=== PATIENT | female | born 1955 | race Asian ===

== ENCOUNTER → 2020-04-16 09:45 | Outpatient (CLI) | payer MEDICARE, SELFPAY ==
[2020-04-17 16:55] LABS: COVID19 Sendout Not Detected (Not Detected)
== END ==
PROVIDERS: Visit Provider Physician Assistant
DX: Z11.59 Encounter for screening for other viral diseases (principal)
CPT/HCPCS: 87635

== ENCOUNTER → 2025-01-22 14:43 | Outpatient (CLI) | payer MEDICARE, OTHER, SELFPAY ==
--- NOTE | 2025-01-22 14:47 | DI.MG.S_ITS ---
MM screening mammo BI: 01/22/2025. BI-RADS: 0 CLINICAL: 69-year old female for bilateral screening mammogram. Tyrer-Cuzick lifetime risk of 2.2%. No personal or first-degree family history of breast cancer. History of ovarian cancer in one first-degree relative. PRIOR EXAMS 2022 [facility]. MAMMOGRAPHY TECHNIQUE: 2D and 3D (tomosynthesis) digital mammographic views obtained, with additional images as needed for full coverage. Current study was also evaluated with a Computer Aided Detection (CAD) system. DENSITY A. The breasts are almost entirely fatty. MAMMOGRAPHY FINDINGS Right: CC only, Outer, Posterior depth: Asymmetry needing additional imaging evaluation. Left: No suspicious mass, asymmetry, microcalcification, or other abnormality seen. No significant change from comparison. IMPRESSION: Right (Asymmetry): CC only, Outer, Posterior depth * Incomplete - asymmetry needing additional imaging evaluation. Left * No evidence of malignancy. RECOMMENDATIONS Right: CC only, Outer, Posterior depth * Further evaluation with diagnostic mammography and diagnostic ultrasound. Ultrasound to be performed only if needed. OVERALL ASSESSMENT CATEGORY BI-RADS-0: Incomplete - Need Additional Imaging Evaluation. ELECTRONICALLY SIGNED: Lindsay Rolle M.D. on 01/25/2025 at 07:09:06 PM PT Interpreting Station ID: [id number]
--- NOTE | 2025-01-22 14:48 | DI.RAD.S_ITS ---
PROCEDURE: XR DEXA AXIAL SKELETON INDICATIONS: SCREENING COMPARISON: None. FINDINGS: Lumbar Spine (L1, L2, L4): Bone mineral density 1.022 g/cm2, T score -0.1, normal. Left Femoral Neck: Bone mineral density 0.536 g/cm2, T score -2.8, osteoporosis. Left Hip: Bone mineral density 0.821 g/cm2, T score -1.0, normal. Fracture Risk Calculation (when applicable): 10-year fracture risk of a major osteoporotic fracture 17 percent and of a hip fracture 5.1 percent. FRAX score not valid because one or more T-scores are below-2.5. (T score greater or equal to -1.0 to: NORMAL) (T score from -1.1 to -2.4: OSTEOPENIA) (T score less than or equal to -2.5: OSTEOPOROSIS) IMPRESSION: Osteoporosis. The patient is at a high risk of fracture. Follow-up guidelines as follows: Osteoporosis: Consider a repeat DEXA and Vertebral Fracture Assessment (VFA) exam in 2 years or sooner if medically necessary, to reassess this patient's status. Osteopenia: Consider a repeat DEXA in 2-3 years to reassess this patient's status, or if there is a new clinical indication. Normal: Consider a repeat DEXA in 5 years or sooner, or if there is a new clinical indication. All treatment decisions require clinical judgment and consideration of individual patient factors, including patient preferences, comorbidities, previous drug use, risk factors not captured in the FRAX model (e.g., frailty, falls, vitamin D deficiency, increased bone turnover, interval significant decline in bone density ) and possible under- or over-estimation of fracture risk by FRAX. In addition, the [employer] Guide recommends that FDA-approved medical therapies be considered in postmenopausal women and men age >= 50 years with a: * Hip or vertebral (clinical or morphometric) fracture * T-score of <=-2.5 at the spine or hip * Ten-year fracture probability by FRAX of >= 3% for hip fracture or >=20% for major osteoporotic fracture. Dictated by: Lindsay Rolle M.D. on 01/23/2025 at 1:12 Approved by: Lindsay Rolle M.D. on 01/23/2025 at 1:14
== END ==
PROVIDERS: PCP Family Medicine; Referring Provider Family Medicine; Visit Provider Family Medicine
DX: Z12.31 Encounter for screening mammogram for malignant neoplasm of breast (principal); R92.313 Mammographic fatty tissue density, bilateral breasts; Z80.41 Family history of malignant neoplasm of ovary; M81.0 Age-related osteoporosis without current pathological fracture; Z78.0 Asymptomatic menopausal state
CPT/HCPCS: 77063; 77067; 77080

== ENCOUNTER → 2025-02-13 09:22 | Outpatient (CLI) | payer MEDICARE, OTHER, SELFPAY ==
--- NOTE | 2025-02-13 09:25 | DI.MG.S_ITS ---
MM diagnostic mammo unilat RT, US breast RT limited: 02/13/2025 BI-RADS: 1 CLINICAL: 69-year old female for right diagnostic mammogram and right diagnostic breast ultrasound that is a recall from screening on 01/22/2025. Tyrer-Cuzick lifetime risk of 2.2%. No personal or first-degree family history of breast cancer. History of ovarian cancer in one first-degree relative. PRIOR EXAMS 01/22/2025, 10/20/2023, 12/09/2021. MAMMOGRAPHY TECHNIQUE: 2D and 3D (tomosynthesis) digital mammographic views obtained, with additional images as needed for full coverage. Current study was also evaluated with a Computer Aided Detection (CAD) system. ULTRASOUND TECHNIQUE Real-time santiago scale imaging of the area of clinical interest was performed with image documentation. TARGETED Right Breast Ultrasound: Real-time ultrasound exam was performed focused to area of clinical and/or imaging concern. DENSITY Right: A. The breasts are almost entirely fatty. MAMMOGRAPHY FINDINGS Right (finding-1): CC only, Outer: The asymmetry seen on recent screening mammogram is less conspicuous with rolled views and is consistent with superimposition of normal breast tissue. ULTRASOUND FINDINGS Right (finding-1): CC only, Outer: No suspicious sonographic finding present. The area from 8-11 o'clock, 9 cm form the nipple was scanned, and no sonographic correlate was found for the asymmetry seen on screening mammogram. IMPRESSION: Right * No evidence of malignancy. RECOMMENDATIONS Bilateral * Annual screening mammography. COMMENTS: Findings and recommendations were conveyed to the patient during today's evaluation. OVERALL ASSESSMENT CATEGORY BI-RADS-1: Negative. The [employer] recommends annual screening mammography beginning at age 40 for women with average risk of breast cancer. ELECTRONICALLY SIGNED: Jeri Mckenzie M.D. on 02/13/2025 at 11:20:13 AM PT Interpreting Station ID: [id number]
--- NOTE | 2025-02-13 09:32 | DI.US.S_ITS ---
PROCEDURE: US BREAST RT LIMITED COMPARISON: None. INDICATIONS: ABNORMAL MAMMO FINDINGS: IMPRESSION: Dictated by: Jeri Mckenzie M.D. on 02/13/2025 at 10:31 Approved by: Jeri Mckenzie M.D. on 02/13/2025 at 10:33
--- NOTE | 2025-02-13 10:16 | DI.US.S_ITS ---
Patient Name: DEBO MCCOY date: 1955 Sex: F Attending Physician: Johnny Indications: Date: 02/13/2025 11:20 At the request of: ANTONIO OCHOA Procedure: US breast RT limited MM diagnostic mammo unilat RT, US breast RT limited: 02/13/2025 BI-RADS: 1 CLINICAL: 69-year old female for right diagnostic mammogram and right diagnostic breast ultrasound that is a recall from screening on 01/22/2025. Tyrer-Cuzick lifetime risk of 2.2%. No personal or firstdegree family history of breast cancer. History of ovarian cancer in one first-degree relative. PRIOR EXAMS 01/22/2025, 10/20/2023, 12/09/2021. MAMMOGRAPHY TECHNIQUE: 2D and 3D (tomosynthesis) digital mammographic views obtained, with additional images as needed for full coverage. Current study was also evaluated with a Computer Aided Detection (CAD) system. ULTRASOUND TECHNIQUE Real-time santiago scale imaging of the area of clinical interest was performed with image documentation. TARGETED Right Breast Ultrasound: Real-time ultrasound exam was performed focused to area of clinical and/or imaging concern. DENSITY Right: A. The breasts are almost entirely fatty. MAMMOGRAPHY FINDINGS Right (finding-1): CC only, Outer: The asymmetry seen on recent screening mammogram is less conspicuous with rolled views and is consistent with superimposition of normal breast tissue. ULTRASOUND FINDINGS Continued Report - Page 2 of 2 Patient Name: DEBO MCCOY date: 1955 Sex: F Attending Physician: Johnny Indications: Date: 02/13/2025 11:20 At the request of: ANTONIO OCHOA Procedure: US breast RT limited Right (finding-1): CC only, Outer: No suspicious sonographic finding present. The area from 8-11 o'clock, 9 cm form the nipple was scanned, and no sonographic correlate was found for the asymmetry seen on screening mammogram. IMPRESSION: Right * No evidence of malignancy. RECOMMENDATIONS Bilateral * Annual screening mammography. COMMENTS: Findings and recommendations were conveyed to the patient during today's evaluation. OVERALL ASSESSMENT CATEGORY BI-RADS-1: Negative. The [employer] recommends annual screening mammography beginning at age 40 for women with average risk of breast cancer. ELECTRONICALLY SIGNED: Jeri Mckenzie M.D. on 02/13/2025 at 11:20:13 AM PT Interpreting Station ID: [id number]
== END ==
PROVIDERS: PCP Family Medicine; Referring Provider Registered Nurse; Visit Provider Registered Nurse
DX: R92.8 Other abnormal and inconclusive findings on diagnostic imaging of breast (principal); Z80.41 Family history of malignant neoplasm of ovary; R92.311 Mammographic fatty tissue density, right breast
CPT/HCPCS: 76642; 77065; G0279

== ENCOUNTER → 2025-03-04 10:23 | Outpatient (CLI) | payer MEDICARE, OTHER, SELFPAY ==
--- NOTE | 2025-03-04 10:25 | DI.RAD.S_ITS ---
PROCEDURE: XR CHEST 2V INDICATIONS: XIPHOID PAIN TECHNIQUE: 2 views of the chest were acquired. COMPARISON: None. FINDINGS: Surgical changes and devices: None. Lungs and pleura: Lungs are clear. No pleural effusions or pneumothorax. Mediastinum: Mediastinal contours are normal. Heart size is normal. Bones and chest wall: No suspicious bony abnormalities. Soft tissues appear unremarkable. No abnormalities identified in the anterior chest as imaged on the lateral projection. IMPRESSION: No acute cardiopulmonary abnormalities or focal consolidation. Dictated by: Neal Calles M.D. on 03/04/2025 at 15:43 Approved by: Neal Calles M.D. on 03/04/2025 at 15:43
== END ==
PROVIDERS: PCP Registered Nurse; Referring Provider Registered Nurse; Visit Provider Registered Nurse
DX: R07.89 Other chest pain (principal)
CPT/HCPCS: 71046

== ENCOUNTER → 2025-05-22 14:40 | Outpatient (CLI) | payer MEDICARE, OTHER, SELFPAY ==
--- NOTE | 2025-05-22 14:44 | DI.RAD.S_ITS ---
PROCEDURE: XR MANDIBLE MIN 4V INDICATIONS: JAW PAIN TECHNIQUE: 4 views of the mandible were acquired. COMPARISON: None. FINDINGS: Bones: No fractures or dislocations. No suspicious bony lesions. Soft tissues: Visualized sinuses appear clear. No suspicious soft tissue densities. IMPRESSION: No acute bony abnormality. Open-mouth views were not included. Dictated by: Jose Reis M.D. on 05/26/2025 at 20:35 Approved by: Jose Reis M.D. on 05/26/2025 at 20:36
== END ==
PROVIDERS: PCP Registered Nurse; Referring Provider Registered Nurse; Visit Provider Registered Nurse
DX: R68.84 Jaw pain (principal); M81.0 Age-related osteoporosis without current pathological fracture
CPT/HCPCS: 70110